=== PATIENT | female | born 1990 | race Caucasian/White ===

== ENCOUNTER 2017-04-19 08:24 | Inpatient (IN) | payer OTHER ==
[2017-04-19] MEDS ORDERED: Ondansetron HCl/PF 4 MG/2 ML Vial IVP PRN ×2 (09:24→14:13)
[2017-04-19] MEDS ORDERED: Promethazine HCl 25 MG/ML VIAL IM PRN ×2 (09:24→14:13)
[2017-04-19] MEDS ORDERED: Lactated Ringer's 1,000 ML IV SCH (09:30)
[2017-04-19] MEDS ORDERED: Bicitra 30 ML UDCUP PO SCH (09:30)
[2017-04-19 11:09] LABS: Hematocrit 37.6 % (36.0-47.0); Mean Platelet Volume 6.8 fL (7.4-10.4); Red Blood Cell (RBC) Count 3.75 mill/uL (4.20-5.40); White Blood Cell (WBC) Count 12.3 thou/uL (4.8-10.8)
[2017-04-19 11:12] VITALS: BMI 37.6
[2017-04-19] MEDS ORDERED: ePHEDrine/0.9% NaCl/PF SYRINGE 50 mg/10 ml ONE (12:05)
[2017-04-19] MEDS ORDERED: Ondansetron HCl/PF 4 MG/2 ML Vial ONE ×2 (12:05→13:25)
[2017-04-19] MEDS ORDERED: Oxytocin 10 UNITS/ML VIAL ONE ×2 (12:05→13:59)
[2017-04-19] MEDS ORDERED: PHENYLEPHRINE-NS 100 MCG/ML 10 ML SYRINGE ONE (12:51)
[2017-04-19] MEDS ORDERED: Fentanyl 100 MCG/2 ML VIAL ONE ×2 (13:22→13:56)
[2017-04-19] MEDS ORDERED: Ketorolac Tromethamine 30 MG/ML VIAL ONE (13:54)
[2017-04-19] MEDS ORDERED: Eucerin (Mineral Oil/Petrolatum,White) 30 gm Jar TOP PRN (14:13)
[2017-04-19] MEDS ORDERED: Naloxone HCl 0.4 mg/ml Vial IV PRN (14:13)
[2017-04-19] MEDS ORDERED: diphenhydrAMINE HCl 50 MG/ML 1 ML VIAL IVP PRN (14:13)
[2017-04-19] MEDS ORDERED: Naloxone HCl 0.4 mg/ml Vial IVP PRN ×2 (14:13)
[2017-04-19] MEDS ORDERED: Promethazine HCl 25 MG SUPP PR PRN (14:13)
[2017-04-19] MEDS ORDERED: Communication Order-Pharmacy FS SCH (14:15)
[2017-04-19] MEDS ORDERED: Lanolin Ointment 7 GM TUBE TOP PRN (16:56)
[2017-04-19] MEDS ORDERED: Acetaminophen 325 MG TAB PO PRN (16:56)
[2017-04-19] MEDS ORDERED: Adacel (T-DAP) 0.5 ML VIAL IM ONE (16:56)
[2017-04-19] MEDS: Lactated Ringer's 1,000 ML IV SCH (18:44)
[2017-04-19] MEDS: Ketorolac Tromethamine 30 MG/ML VIAL IVP PRN (21:25)
--- NOTE | 2017-04-19 23:35 | OP-2 ---
DATE OF PROCEDURE: 04/19/2017 RESIDENT SURGEON: Bin Godinez MD ASSISTANT PROFESSOR OF SOCIOLOGY: Dr. Salome Zepeda. ATTENDING: Dr. Yenifer Castaneda. PROCEDURE PERFORMED: Repeat low transverse section. PREOPERATIVE DIAGNOSES: 1. Term intrauterine . 2. Prior x1. 3. Chronic hypertension. 4. Obesity. POSTOPERATIVE DIAGNOSES: 1. Term intrauterine , delivered. 2. Previous x1. 3. Chronic hypertension. 4. Obesity. ANESTHESIA: Spinal. INDICATIONS: The patient is a 26-year-old G3, P1-0-1-1 at 38.1 weeks' gestation , who presented for a repeat scheduled section on 04/19/2017. Patient was found to have a complicated by chronic hypertension, not on any medication and with blood pressures persistently in the 140s and 150s throughout the . PROCEDURE IN DETAIL: After risks, benefits, and alternatives were explained, the patient gave informed consent. Preoperative antibiotics included cefazolin 2 gram IV. The patient was taken to the operating room where spinal anesthesia was initiated. She was placed in the supine position with a left tilt and prepped and draped in usual sterile fashion. Pfannenstiel incision was made with scalpel and carried down to level of the fascia, which was sharply nicked. The fascial cut was extended bilaterally with Odonnell scissors. Inferior and superior edges of the cut fascial edges were elevated following with Taylor clamps and underlying rectus muscles were sharply and bluntly dissected free. The recti were divided digitally and retracted manually. The peritoneum was entered bluntly and retracted manually. Upon entering the peritoneum, it was noted that the omentum was adhesed anteriorly to the uterus and bladder flap. This was reduced with a combination of Metzenbaum scissors and Bovie cautery. Bladder blade was then placed. Bladder flap was created with Metzenbaum scissors. A low transverse score was made with the scalpel and the uterus was entered in the midline with the scalpel. Clear fluid was seen. Hysterotomy was extended manually. Infant was noted to be vertex and was easily delivered by fundal pressure. Mouth and nares were bulb suctioned. Cord was clamped and cut and grossly normal male was handed to waiting nurse. Cord blood was obtained. Placenta was manually extracted, found to be intact with three- vessel cord and sent to pathology. Uterus was cured with a dry lap. Bladder blade was replaced and uterus was closed with a running locking 1 Monocryl suture, [id number] with 1 Monocryl was placed in the left corner as well and subsequent bleeding was noted. Following this, hemostasis was noted. The abdomen was irrigated with saline and suctioned free of clots. Hysterotomy was again noted to be hemostatic. Fascia was closed with a running nonlocking 0 Vicryl suture. Subcutaneous tissue was irrigated and there were no bleeders noted. Subcutaneous tissue was then closed with a 2-0 chromic suture. Skin was approximated with romeo and a pressure dressing was placed. All counts were correct. The patient tolerated the procedure well and was taken to the recovery room in stable condition. ESTIMATED BLOOD LOSS: 700 mL. COMPLICATIONS: None. SPECIMENS: Cord blood sent to lab for blood type and sent to pathology. FINDINGS: Grossly normal male infant with Apgars of 7 and 9. Grossly normal placenta with three-vessel cord, sent to path. DRAINS: Sandra to gravity draining clear urine. [facility]
[2017-04-20] MEDS: Ketorolac Tromethamine 30 MG/ML VIAL IVP PRN (04:44)
[2017-04-20] MEDS: Lactated Ringer's 1,000 ML IV SCH ×4 (04:45→21:44)
[2017-04-20] MEDS: Docusate (Surfak) 240 MG CAP PO SCH ×3 (04:45→21:30)
[2017-04-20 05:54] LABS: Mean Platelet Volume 6.6 fL (7.4-10.4); Red Blood Cell (RBC) Count 3.15 mill/uL (4.20-5.40); White Blood Cell (WBC) Count 13.2 thou/uL (4.8-10.8)
--- NOTE | 2017-04-20 06:35 | PDOC.PP ---
Post Progress Note Post Day #: 1 -: Pain well controlled PO intake tolerated: yes Flatus: yes Ambulation: yes Vital Signs (12 hours) Temp Pulse Resp BP BP 04/20/17 04:00 98.6 F 100 18 132/90 04/20/17 00:00 98.3 F 78 20 04/19/17 20:10 98.5 F 85 18 135/80 04/19/17 20:00 98.3 F 78 20 Weight Weight 122.47 kg - Physical Examination General: NAD Cardiovascular: no m/r/g, RRR Respiratory: clear to ausculation bilateral Abdominal: + bowel sounds, lochia (small), no distention, appropriately TTP Fundus firm & at: umbilicus Extremities: negative homans (B) Skin: no rash Neurological: no gross focal deficits Psychiatric: normal affect Result Diagrams: 04/20/17 05:43 Additional Labs: Post Labs Blood Type O POSITIVE 04/19/17 10:52 Hep Bs Antigen Non-Reactive S/CO (NonReactive) 04/19/17 10:52 (1) Term delivered Code(s): O80 - ENCOUNTER FOR FULL-TERM UNCOMPLICATED DELIVERY Status: Acute Comment: 26 y/o delivered at 38.1 WGA via rLTCS for chronic HTN PPD1 -Pain controlled -Encourage ambulation -+Flatus -Tolerating PO -Wound vac in place -Continue PNV -Breast feeding, consulted has already seen her <Masha Tyler - Last Filed: 04/20/17 06:33> Vital Signs (12 hours) Temp Pulse Resp BP 04/20/17 07:56 98.1 F 75 20 122/61 04/20/17 04:00 98.6 F 100 18 132/90 04/20/17 00:00 98.3 F 78 20 Weight Weight 122.47 kg Result Diagrams: 04/20/17 05:43 Additional Labs: Post Labs Blood Type O POSITIVE 04/19/17 10:52 Hep Bs Antigen Non-Reactive S/CO (NonReactive) 04/19/17 10:52 <Yenifer Castaneda - Last Filed: 04/20/17 09:35> Attending Addendum - Attending Addendum I personally evaluated the patient and discussed the management with Dr. Tyler I agree with the History, Examination, Assessment and Plan documented above with any addition or exceptions noted below- Patient without complaints. Pain well controlled. Tolerating diet. Ambulating without difficulty. Afebrile VSS 1 ) POD#1 s/p repeat - continue routine care; H/H expected drop 2) Chronic HTN-continue to monitor. May need to start medication. <eYnifer Castaneda - Last Filed: 04/20/17 09:35>
[2017-04-20] MEDS: HYDROcodone/Acetaminophen 5/325 mg Tablet PO PRN ×3 (09:02→20:57)
[2017-04-20] MEDS: Ibuprofen 800 MG TAB PO SCH ×2 (13:18→21:30)
[2017-04-21] MEDS: HYDROcodone/Acetaminophen 5/325 mg Tablet PO PRN ×5 (00:55→20:17)
[2017-04-21] MEDS: Ibuprofen 800 MG TAB PO SCH ×2 (05:58→14:47)
[2017-04-21] MEDS: Lactated Ringer's 1,000 ML IV SCH ×2 (06:11→14:47)
--- NOTE | 2017-04-21 07:07 | PDOC.PP ---
Post Progress Note Post Day #: 2 -: still having some discomfort with ambulation PO intake tolerated: yes Flatus: yes Ambulation: yes Vital Signs (12 hours) Temp Pulse Resp BP 04/21/17 03:46 98.0 F 77 14 134/64 04/21/17 00:05 97.9 F 89 16 135/69 04/20/17 19:49 97.9 F 86 16 151/76 H Weight Weight 122.47 kg - Physical Examination General: NAD Cardiovascular: no m/r/g, RRR Respiratory: clear to ausculation bilateral Abdominal: + bowel sounds, no distention, appropriately TTP Deviation from normal: wound vac in place Extremities: negative homans (B) Skin: no rash Neurological: no gross focal deficits Psychiatric: normal affect Result Diagrams: 04/20/17 05:43 Additional Labs: Post Labs Blood Type O POSITIVE 04/19/17 10:52 Hep Bs Antigen Non-Reactive S/CO (NonReactive) 04/19/17 10:52 (1) Term delivered Code(s): O80 - ENCOUNTER FOR FULL-TERM UNCOMPLICATED DELIVERY Status: Acute Comment: 26 y/o delivered at 38.1 WGA via rLTCS for chronic HTN. Doing well, states baby is latching better. Has some discomfort with ambulation with wound vac in place, but states pain has been well controlled thus far. Likely stable for d/c home today. (2) Chronic hypertension affecting Code(s): O10.919 - UNSP PRE-EXISTING HTN COMP , UNSP TRIMESTER Status : Chronic Comment: F/u as outpt for further management. BPs stable PP. <Bin Godinez - Last Filed: 04/21/17 07:57> Vital Signs (12 hours) Temp Pulse Resp BP BP 04/21/17 07:59 97.7 F 75 20 158/77 H 04/21/17 07:45 97.7 F 75 20 04/21/17 03:46 98.0 F 77 14 134/64 04/21/17 00:05 97.9 F 89 16 135/69 Weight Weight 122.47 kg Result Diagrams: 04/20/17 05:43 Additional Labs: Post Labs Blood Type O POSITIVE 04/19/17 10:52 Hep Bs Antigen Non-Reactive S/CO (NonReactive) 04/19/17 10:52 <Yenifer Castaneda - Last Filed: 04/21/17 09:43> Attending Addendum - Attending Addendum I personally evaluated the patient and discussed the management with Dr. Godinez I agree with the History, Examination, Assessment and Plan documented above with any addition or exceptions noted below- Patient complaining of incisional pain. Ambulating. Tolerating diet. Afebrile VSS A/P: 1) POD#2 s/p repeat LCT C/S - continue current care. Plan for d/c home tomorrow. <Yenifer Castaneda - Last Filed: 04/21/17 09:43>
[2017-04-21] MEDS: Docusate (Surfak) 240 MG CAP PO SCH ×2 (09:43→20:17)
[2017-04-21] MEDS ORDERED: Labetalol HCl 100 MG/20 ML VIAL SLOW IVP PRN (14:24)
[2017-04-21] MEDS ORDERED: Labetalol HCl 100 MG TAB PO SCH (15:30)
[2017-04-21] MEDS: Labetalol HCl 100 MG TAB PO SCH (20:22)
[2017-04-22] MEDS: Lactated Ringer's 1,000 ML IV SCH ×2 (01:28→05:47)
[2017-04-22] MEDS: Ibuprofen 800 MG TAB PO SCH ×3 (01:28→14:21)
[2017-04-22] MEDS: HYDROcodone/Acetaminophen 5/325 mg Tablet PO PRN ×3 (02:31→14:17)
[2017-04-22 04:36] VITALS: TEMP 98.2
--- NOTE | 2017-04-22 07:42 | PDOC.PP ---
Post Progress Note Post Day #: 3 -: Pain is a little better today PO intake tolerated: yes Flatus: yes Ambulation: yes Vital Signs (12 hours) Temp Pulse Resp BP BP BP Pulse Ox 04/22/17 04:15 98.2 F 81 20 148/90 H 98 04/22/17 00:55 97.4 F L 85 20 143/88 H 04/21/17 21:57 146/92 H 04/21/17 21:55 85 181/88 H 04/21/17 20:22 86 187/83 H 04/21/17 20:05 97.4 F L 86 20 187/83 H 96 Weight Weight 122.47 kg - Physical Examination General: NAD Cardiovascular: no m/r/g, RRR Respiratory: clear to ausculation bilateral Abdominal: + bowel sounds, no distention, appropriately TTP Extremities: negative homans (B) Skin: no rash Neurological: no gross focal deficits Psychiatric: normal affect Result Diagrams: 04/20/17 05:43 Additional Labs: Post Labs Blood Type O POSITIVE 04/19/17 10:52 Hep Bs Antigen Non-Reactive S/CO (NonReactive) 04/19/17 10:52 (1) Term delivered Code(s): O80 - ENCOUNTER FOR FULL-TERM UNCOMPLICATED DELIVERY Status: Acute Comment: 26 y/o delivered at 38.1 WGA via rLTCS for chronic HTN. Doing well, states baby is latching better. Still having some discomfort with ambulation with wound vac in place, but states today is a little better than yesterday. Likely stable for d/c home today. F/u in 1 week for removal of wound vac. (2) Chronic hypertension affecting Code(s): O10.919 - UNSP PRE-EXISTING HTN COMP , UNSP TRIMESTER Status : Chronic Comment: BPs elevated yesterday to 170s-180s systolic, but improved to 140s after switching to manual cuff. Will need outpt f/u, but this was her baseline prior to and throughout . Asymptomatic. <Bin Godinez - Last Filed: 04/22/17 07:58> Vital Signs (12 hours) Temp Pulse Resp BP BP BP Pulse Ox 04/22/17 08:43 73 160/80 H 04/22/17 08:05 98.2 F 73 18 160/80 H 04/22/17 04:15 98.2 F 81 20 148/90 H 98 04/22/17 00:55 97.4 F L 85 20 143/88 H 04/21/17 21:57 146/92 H 04/21/17 21:55 85 181/88 H Weight Weight 122.47 kg Result Diagrams: 04/20/17 05:43 Additional Labs: Post Labs Blood Type O POSITIVE 04/19/17 10:52 Hep Bs Antigen Non-Reactive S/CO (NonReactive) 04/19/17 10:52 <Yenifer Castaneda - Last Filed: 04/22/17 09:08> Attending Addendum - Attending Addendum I personally evaluated the patient and discussed the management with Dr. Godinez I agree with the History, Examination, Assessment and Plan documented above with any addition or exceptions noted below- Patient complaining of pain; controlled with medications. Afebrile VSS A/P: 1) POD#3 s/p repeat - continue current care; possible home later today. 2) CHronic HTN- BP elevated; started on labetolol; if improved, pklan to d/c home with close follow-up. <Yenifer Castaneda - Last Filed: 04/22/17 09:08>
[2017-04-22] MEDS: Labetalol HCl 100 MG TAB PO SCH (08:43)
[2017-04-22] MEDS: Docusate (Surfak) 240 MG CAP PO SCH (08:43)
[2017-04-22] MEDS ORDERED: Lactated Ringer's 1,000 ML IV SCH (09:40)
[2017-04-22 12:02] VITALS: BP 140/76
== END 2017-04-22 18:30 | disposition home or self-care (01) | DRG 766 ==
LOC: L&D 09:45 → 3SW 17:01
PROVIDERS: ADMIT Family Medicine; ATTEND Family Medicine
PROC: 10D00Z1 Extraction of Products of Conception, Low, Open Approach (ICD-10-PCS; principal; 2017-04-19)
DX: O10.02 Pre-existing essential hypertension complicating childbirth (principal); E66.01 Morbid (severe) obesity due to excess calories; O99.214 Obesity complicating childbirth; Z68.37 Body mass index [BMI] 37.0-37.9, adult; O34.211 Maternal care for low transverse scar from previous cesarean delivery; Z3A.38 38 weeks gestation of pregnancy; Z37.0 Single live birth
CPT/HCPCS: 36415; 82805; 85027; 86780; 86850; 86900; 86901; 87340; 88307; 90715; J1885; J2274; J2405; J2590; J3010

== ENCOUNTER 2018-02-26 13:18 | Emergency (ER) | payer OTHER, SELFPAY ==
[2018-02-26] MEDS ORDERED: HYDROcodone/Acetaminophen 10/325 mg Tablet ONE (14:24)
[2018-02-26] MEDS ORDERED: Ketorolac Tromethamine 30 MG/ML VIAL ONE (14:24)
--- NOTE | 2018-02-26 15:01 | RAD ---
THREE VIEWS LUMBAR SPINE: History: Back pain and injury. FINDINGS: AP, lateral, and coned down views of the lumbar spine obtained. Images demonstrate five non-rib bearing lumbar vertebrae. No evidence of acute fractures, subluxation s, or bony lesions seen. IMPRESSION: Normal three views lumbar spine. POS: [facility]
--- NOTE | 2018-02-26 15:02 | RAD ---
THREE VIEWS THORACIC SPINE: History: Injury with back pain. FINDINGS: The thoracic vertebrae maintain normal height and alignment. No compression deformity. Disc spaces ar e preserved. No evidence of lytic or blastic process. IMPRESSION: Unremarkable thoracic spine. POS: [facility]
== END 2018-02-26 15:17 | disposition home or self-care (01) ==
LOC: ERS 13:18
DX: M54.42 Lumbago with sciatica, left side (principal); I10 Essential (primary) hypertension; J45.909 Unspecified asthma, uncomplicated
CPT/HCPCS: 72072; 72100; 96372; J1885

== ENCOUNTER 2018-03-30 15:25 | Emergency (ER) | payer SELFPAY ==
[2018-03-30] MEDS ORDERED: Ketorolac Tromethamine 60 MG/2 ML VIAL ONE (17:12)
== END 2018-03-30 17:41 | disposition home or self-care (01) ==
LOC: ERS 15:25
DX: M54.5 Low back pain (principal); I10 Essential (primary) hypertension; J45.909 Unspecified asthma, uncomplicated; F31.9 Bipolar disorder, unspecified; Z79.899 Other long term (current) drug therapy
CPT/HCPCS: 96372; J1885

== ENCOUNTER 2018-11-03 19:59 | Emergency (ER) | payer SELFPAY ==
--- NOTE | 2018-11-03 21:01 | RAD ---
THREE VIEWS RIGHT ANKLE: 11/03/18 HISTORY: Right ankle pain. AP, lateral and oblique views right ankle obtained. Three views right ankle demonstrate no evidence of right ankle fractures, subluxations, or bony lesio ns. IMPRESSION: Normal three views right ankle. POS: [facility]
== END 2018-11-03 21:32 | disposition home or self-care (01) ==
LOC: ERS 19:59
DX: S93.401A Sprain of unspecified ligament of right ankle, initial encounter (principal); I10 Essential (primary) hypertension; J45.909 Unspecified asthma, uncomplicated; F41.9 Anxiety disorder, unspecified; F32.9 Major depressive disorder, single episode, unspecified; F17.210 Nicotine dependence, cigarettes, uncomplicated; Z79.899 Other long term (current) drug therapy; X50.9XXA Other and unspecified overexertion or strenuous movements or postures, initial encounter

== ENCOUNTER 2020-07-29 12:59 | Emergency (ER) | payer SELFPAY ==
[2020-07-29 13:23] LABS: Bacteria/HPF 3+ HPF (None Seen); Bilirubin Negative (Negative); Blood, Urine 2+ (Negative); Clarity Turbid (Clear); Glucose, Urine (Dipstick) Normal (Negative); Ketone, Urine Negative (Negative); Leukocyte 500 Leu/uL (Negative); Nitrite 1+ (Negative); Protein, Urine (Dipstick) 100 mg/dL (Neg-Trace); RBC/HPF 21-50 HPF (0-3); Specific Gravity, Urine 1.026 (1.002-1.036); Urobilinogen Normal mg/dL (Less than 2); WBC/HPF Greater than 50 HPF (0-3)
[2020-07-29 13:25] LABS: Pregnancy Test - Urine (BHCG) POSITIVE (Negative); Pregu Control Background? CLEAR/WHITE (CLR/WHITE); Pregu Control Bar Appear? YES (CONTROL BAR); Specific Gravity 1.026 (1.002-1.036)
[2020-07-29 13:28] LABS: #Basophils 0.1 thou/uL (0.0-0.2); #Eosinphils 0.1 thou/uL (0.0-0.7); #Monocytes 0.7 thou/uL (0.11-0.59); %Basophils 0.5 % (0.0-1.0); %Eosinophils 0.7 % (0.0-10.0); %Lymphocytes 15.4 % (21.0-51.0); %Monocytes 5.7 % (0.0-10.0); %Neutrophils 77.8 % (42.0-75.0); Hemoglobin 13.5 g/dL (12.0-16.0); Mean Corpuscular HGB CONC 33.5 g/dL (32.0-36.0); Mean Corpuscular Hemoglobin 32.7 pg (27.0-31.0); Mean Corpuscular Volume 97.6 fL (78.0-98.0); Mean Platelet Volume 6.6 fL (7.4-10.4); Platelet Count 317 thou/uL (130-400); RBC Distribution Width 12.3 % (11.5-14.5); Red Blood Cell (RBC) Count 4.13 mill/uL (4.20-5.40); White Blood Cell (WBC) Count 12.9 thou/uL (4.8-10.8)
[2020-07-29 13:50] LABS: ALT (SGPT) 12 U/L (8-55); AST (SGOT) 13 U/L (5-34); Albumin 4.4 g/dL (3.5-5.0); Alkaline Phosphatase 71 U/L (40-110); Anion Gap 14 mmol/L (10-20); BUN (Urea Nitrogen) 6 mg/dL (7.0-18.7); Bilirubin, Total 0.5 mg/dL (0.2-1.2); Calc. Creatinine Clearance 0 mL/min (70-130); Calcium 9.4 mg/dL (7.8-10.44); Carbon Dioxide 25 mmol/L (22-29); Chloride 102 mmol/L (98-107); Globulin 3.3 g/dL (2.4-3.5); Glucose 93 mg/dL (70-105); Potassium 3.7 mmol/L (3.5-5.1); Protein, Total 7.7 g/dL (6.0-8.3); Sodium 137 mmol/L (136-145)
--- NOTE | 2020-07-29 15:46 | ULT ---
Obstetric sonogram transabdominal imaging HISTORY: Early . Pelvic pain. FINDINGS: Urinary bladder is decompressed. Uterus measures up to 11.6 cm and contains a gestational s ac with a yolk sac and pole. Heart motion at 173 bpm. Measurements correlate with 8 weeks 1 day gestational age giving an estimated date of delivery of 03/09/2021. Complex cystic lesion at the left ovary 3.2 cm appearance of corpus luteum. Good color and spectral D oppler flow within each ovary. Right ovary normal appearance. No free fluid. IMPRESSION : Single early intrauterine gestation 8 weeks 1 day. No abnormalities are demonstrated.
[2020-07-29] MEDS ORDERED: Acetaminophen 500 MG TAB ONE (16:23)
[2020-07-29] MEDS ORDERED: cefTRIAXone\\ROCEPHIN 1 GM VIAL ONE (16:23)
== END 2020-07-29 17:10 | disposition home or self-care (01) ==
LOC: ERS 12:59
DX: O23.41 Unspecified infection of urinary tract in pregnancy, first trimester (principal); O16.1 Unspecified maternal hypertension, first trimester; O99.331 Smoking (tobacco) complicating pregnancy, first trimester; F17.210 Nicotine dependence, cigarettes, uncomplicated; Z3A.08 8 weeks gestation of pregnancy
CPT/HCPCS: 36415; 76856; 80053; 81003; 81015; 81025; 84702; 85025; 87077; 87086; 87186; 93976; 96365; J0696